=== PATIENT | male | born 1970 | race Caucasian/White ===

== ENCOUNTER 2017-02-19 20:25 | Emergency (ER) | payer BC ==
[~2017-02-19] VITALS: Ht 175.3 cm; Wt 93.0 kg
[2017-02-19] MEDS ORDERED: ROCEPHIN IM IM STA (20:42)
--- NOTE | 2017-02-19 20:49 | ER.PDOC ---
General Chief Complaint: Toothache Stated Complaint: TOOTHACHE Time seen by MD: 20:40 History of Present Illness Initial Comments Pt started this noon with acute pain on left lower posterior molar while he was eating. He did have problems with that tooth and is due for a root canal Timing/Duration: abrupt Context: fractured tooth Associated Symptoms: facial pain, swollen jaw, jaw pain (L) Severity: severe Allergies: Coded Allergies: No Known Allergies (Unverified , 02/19/17) Past Medical History Medical History: no pertinent history Surgical History: no surgical history Social History Smoking: cigarettes, greater than 1 pack/day Alcohol Use: none Drug Use: none Constitutional: see HPI Eyes: see HPI Ears: see HPI Nose: see HPI Mouth: see HPI Throat: see HPI Respiratory: see HPI Cardiovascular: see HPI Gastrointestinal: see HPI Musculoskeletal: see HPI Skin: see HPI Neurological: see HPI Hematologic/Lymphatic: see HPI Immunological/Allergic: see HPI Physical Exam General Appearance: alert, no distress Head/Neck: head nml inspection, neck nml inspection, trachea midline, no lymphadenopathy, thyroid nml Eyes: eyes nml inspection, PERRL, no nystagmus Mouth: lips, gums nml, no drooling, no thrush, membranes nml, dental tenderness , gum swelling Throat: pharynx nml, voice nml, no airway problems Respiratory: no resp. distress, lungs clear CVS: reg. rate & rhythm, heart sounds nml Abdomen: non-tender, no organomegaly Extremities: non-tender, ROM nml Departure Time of Disposition: 20:46 Disposition: 01 HOME, SELF-CARE Impression: Primary Impression: Dental caries Additional Impression: Dental disease Condition: Stable Patient Instructions: Dental Abscess, Dental Caries Referrals: PCP,UNKNOWN (PCP) PRIMARY CARE PROVIDER MATTIE ALSTON MD February 19, 2017 20:49
[2017-02-19] MEDS ORDERED: ROCEPHIN ONE (20:54)
[2017-02-19] MEDS ORDERED: TORADOL ONE (20:54)
[2017-02-19] MEDS ORDERED: LIDOCAINE 1% VIAL ONE (20:54)
[2017-02-19] MEDS ORDERED: TORADOL IM ONE (21:00)
[2017-02-19 21:18] VITALS: BP 141/90
== END 2017-02-19 21:15 | disposition home or self-care (01) ==
LOC: ER 20:25
DX: K02.9 Dental caries, unspecified (principal); F17.210 Nicotine dependence, cigarettes, uncomplicated
CPT/HCPCS: 96372 ×2; 99284; J0696; J1885; J2001